=== PATIENT | male | born 1975 | race Caucasian/White ===

== ENCOUNTER 2021-12-01 22:15 | Emergency (ER) | payer OTHER, SELFPAY ==
[2021-12-01 22:24] VITALS: BP 145/94; PULSE 92; RESP 20; TEMP 36.7; O2SAT 97
--- NOTE | 2021-12-01 23:27 | ED.EYEPROB ---
HPI - Eye Problem General Chief complaint: Eye Problems Stated complaint: something in eye Time Seen by Provider: 12/01/21 23:27 Source: patient Mode of arrival: ambulatory Limitations: no limitations History of Present Illness HPI Narrative: 46-year-old male presents emergency room secondary pain irritation in the left eye. He states he started just prior to come to emergency room. He states he feels like he got something in his eye. He was doing nothing but sitting watching TV at the time this started. He denies any visual disturbance. States he had sand in his eye 1 time before and this feels like that. Related Data Allergies Allergy/AdvReac Type Severity Reaction Status Date / Time NKDA Allergy Mild Unknown Uncoded 12/01/21 22:37 Review of Systems Review of Systems: CONSTITUTIONAL: Denies fever, chills, or sweats. EYES: Pain to the left eye. No visual disturbances. No discharge. ENT: Denies rhinorrhea, congestion, sore throat, or otalgia. CARDIOVASCULAR: Denies chest pain, palpitations, or edema. RESPIRATORY: Denies cough or dyspnea. GASTROINTESTINAL: Denies abdominal pain, nausea, vomiting, or diarrhea. GENITOURINARY: Denies dysuria or hematuria. SKIN: Denies rash or itching. MUSCULOSKELETAL: Denies back pain, joint pain, or myalgia. NEUROLOGIC: Denies headache, numbness, or weakness. PSYCHIATRIC: Denies anxiety or depression. Exam Narrative: APPEARANCE: Well appearing, no pain or distress, well-nourished. Head normocephalic and atraumatic. EYES: PERRLA/EOMI, conjunctivae very clear. Unable to visualize any foreign bodies to the left eye. Proparacaine was placed in left eye for anesthetic effect. Able to sweep under upper and lower lids with a Q-tip and no foreign bodies there either. Fluorescein stain was performed and could not visualize any corneal abrasion. Patient states his pain is sensation is completely gone at this time. NOSE: Normal with no drainage EARS:TMS clear Elvis Neville, with good light reflex. THROAT: Pharynx clear, no exudate. NECK: Supple. No adenopathy, no masses. RESPIRATORY: Airway patent, respirations nonlabored. Clear to auscultation bilaterally, no rales, rhonchi, wheezing. CARDIOVASCULAR: Regular rate and rhythm without murmurs, rubs, or gallops. ABDOMINAL: Soft, nontender, nondistended, no hepatosplenomegaly Musculoskeletal: Moves all extremities. Strength/ROM intact, No edema, No calf tenderness. NEURO: Alert. Cranial nerves II through XII intact. Normal gait. Good coordination. Nonfocal examination. SKIN:: Warm, dry. Normal Color PSYCHIATRIC: Normal affect/mood, normal interaction Course Vital Signs Vital signs: Vital Signs Temperature 98.1 F 12/01/21 22:24 Pulse Rate 92 12/01/21 22:24 Respiratory Rate 20 12/01/21 22:24 Blood Pressure 145/94 H 12/01/21 22:24 Pulse Oximetry 97 12/01/21 22:24 Temperature 98.1 F 12/01/21 22:24 Pulse Rate 92 12/01/21 22:24 Respiratory Rate 20 12/01/21 22:24 Blood Pressure 145/94 H 12/01/21 22:24 Pulse Oximetry 97 12/01/21 22:24 MDM - Eye Problem MDM Narrative Medical decision making narrative: Based on the patient's presentation as well as examination patient probably had a foreign body which is already come out of his eye. He got no corneal abrasion no foreign bodies able to be visualized at this time. Discharge Plan Discharge Clinical Impression: Acute left eye pain Patient Disposition: Home, Self-Care Condition: Improved Instructions: Eye Foreign Body (ED) Additional Instructions: Return if worse. Follow-up with your primary physician. Follow-up/Referrals: Maico,Joan Escobar MD [Primary Care Provider] - Time of Disposition: 00:19
[2021-12-01] MEDS: PROPARACAINE HCL 0.5% 15 ML OPHTH SOLN 1 DROP LEFT EYE (23:59)
[2021-12-02 00:25] VITALS: BP 122/82; PULSE 93; RESP 18; O2SAT 96
== END 2021-12-02 00:26 | disposition home or self-care (01) ==
PROVIDERS: Emergency Provider Emergency Medicine; PCP Family Medicine
DX: H57.12 Ocular pain, left eye (principal)
CPT/HCPCS: 99283; A9270

== ENCOUNTER 2024-06-26 13:54 | Emergency (ER) | payer OTHER, SELFPAY ==
--- NOTE | ~2024-06-26 | CT_ITS ---
EXAMINATION: CT abdomen pelvis w con DATE: 06/26/2024 16:50 INDICATION: Left lower quadrant abdominal pain. Diarrhea. TECHNIQUE: Computed tomography (CT) of the abdomen and pelvis was performed with 100 mL Omnipaque 350 intravenous contrast. Automated exposure control and iterative reconstruction technique were employe d. The dose-length product was 1870.87 mGy-cm. COMPARISON: CT abdomen and pelvis 03/24/2009 FINDINGS: The visualized portions of the lung bases demonstrate mild atelectasis. There are a few nod ules in the lungs measuring up to 4 mm, likely benign. No pleural effusion. The heart size is normal. No pericardial effusion. There is a small sliding hiatal hernia. There is a 5.7 x 2.6 cm pericardial cyst on the right. The liver is normal. The gallbladder is absent. The spleen, pancreas, adrenal gla nds, and left kidney are normal. There are cysts in right kidney measuring up to 2.0 cm. There is fat stranding around an epiploic appendage of sigmoid colon, consistent with epiploic appendagitis. Ther e are no dilated loops of bowel. The appendix is normal. There are no pathologically enlarged lymph n odes. There is no free intraperitoneal fluid. There is a right inguinal hernia containing fat. There is moderate thoracic and lumbar spondylosis. There is mild chronic anterior wedging of multiple thora cic vertebral bodies. IMPRESSION: 1. Epiploic appendagitis of the sigmoid colon. Reviewed, dictated and finalized at location A. Y [employer]
[2024-06-26 14:44] VITALS: BP 146/105; PULSE 89; RESP 18; TEMP 36.3; O2SAT 96
--- NOTE | 2024-06-26 14:44 | ED_ITS ---
HPI - Abdominal Pain General Chief Complaint: Abdominal Pain <Courtney Torres PA-C - Last Filed: 06/26/24 19:15> Stated Complaint: abd pain <Courtney Torres PA-C - Last Filed: 06/26/24 19:15> Time Seen by Provider: 06/26/24 14:44 <Courtney Torres PA-C - Last Filed: 06/26/24 19:15> Focused HPI: Patient is a 48 y/o male who presents to the ED with c/o LLQ abd pain. Patient reports he woke up yesterday with mild pain in his LLQ. States it worsened throughout the day, worse with movements/bending. States pain woke up him several times throughout the night. Denied any change in his pain with bowel movements. He went to an urgent care today and was referred to the ED for further evaluation. Has not taken anything for the pain. Denies N/V, rectal bleeding, melena, fevers. Denies hx of diverticulitis. Had a colonoscopy about 10 years ago which showed internal hemorrhoids. No other significant findings. GENERAL: Well-appearing, morbidly obese with BMI of 41.9, and in no acute distress. HEAD: Normocephalic, atraumatic. CHEST: Clear to auscultation. ?No respiratory distress. HEART: Regular rate and rhythm.? ABD: Focal TTP in LLQ, no rebound. Normoactive BS. NEURO: ?Alert and oriented x3. Patient screened in triage and initial orders placed.? ?Additional care and disposition to be based upon?diagnostic testing and treatment. <Courtney Torres PA-C - Last Filed: 06/26/24 19:15> Source: patient <Courtney Torres PA-C - Last Filed: 06/26/24 19:15> Mode of arrival: ambulatory <Courtney Torres PA-C - Last Filed: 06/26/24 19:15> Limitations: no limitations <Courtney Torres PA-C - Last Filed: 06/26/24 19:15> History of Present Illness HPI narrative: per hpi <Elif Rivas MD - Last Filed: 06/26/24 19:35> Related Data Allergies/Adverse Reactions: Allergies Allergy/AdvReac Type Severity Reaction Status Date / Time NKDA Allergy Mild Unknown Uncoded 12/01/21 22:37 <Courtney Torres PA-C - Last Filed: 06/26/24 19:15> Review of Systems Review of Systems: All systems reviewed & are unremarkable except as noted in HPI and below <Elif Rivas MD - Last Filed: 06/26/24 19:35> Exam Narrative: EXAMINATION OF ORGAN SYSTEMS/BODY AREAS: Constitutional: Vital signs per nursing GENERAL:[No acute distress, non-toxic appearing.] HEAD: Normal with no signs of head trauma. EYES: EOMI, conjunctiva normal ENT: Hearing grossly intact LUNGS: Nonlabored breathing. HEART: [Regular rate and rhythm] ABD: [Soft], very minimally tender to palpation left lower abdomen EXT: Normal range of motion SKIN: [No rashes or lesions.] NEURO: [Alert and oriented x 3. No gross focal sensory or strength deficits.] PSYCH: Normal affect <Elif Rivas MD - Last Filed: 06/26/24 19:35> Course Vital Signs Vital signs: Vital Signs Temperature 97.4 F L 06/26/24 14:44 Pulse Rate 89 06/26/24 14:44 Respiratory Rate 18 06/26/24 14:44 Blood Pressure 146/105 H 06/26/24 14:44 Pulse Oximetry 96 06/26/24 14:44 Oxygen Delivery Room Air 06/26/24 14:44 Temperature 97.4 F L 06/26/24 14:44 Pulse Rate 76 06/26/24 17:43 Respiratory Rate 18 06/26/24 17:43 Blood Pressure 148/88 H 06/26/24 17:43 Pulse Oximetry 100 06/26/24 17:43 Oxygen Delivery Room Air 06/26/24 14:44 <Courtney Torres PA-C - Last Filed: 06/26/24 19:15> Vital Signs Temperature 97.4 F L 06/26/24 14:44 Pulse Rate 89 06/26/24 14:44 Respiratory Rate 18 06/26/24 14:44 Blood Pressure 146/105 H 06/26/24 14:44 Pulse Oximetry 96 06/26/24 14:44 Oxygen Delivery Room Air 06/26/24 14:44 Temperature 97.4 F L 06/26/24 14:44 Pulse Rate 76 06/26/24 17:43 Respiratory Rate 18 06/26/24 17:43 Blood Pressure 148/88 H 06/26/24 17:43 Pulse Oximetry 100 06/26/24 17:43 Oxygen Delivery Room Air 06/26/24 14:44 <Elif Rivas MD - Last Filed: 06/26/24 19:35> MDM - Abdominal Pain MDM Narrative Medical decision making narrative: MSE by RUDI in triage. <Courtney Torres PA-C - Last Filed: 06/26/24 19:15> MSE by RUDI in triage. // Patient sent here due to left lower quadrant pain for rule out diverticulitis. Patient started today, no fevers or chills, nausea vomiting. He is very well- appearing here with minimal tenderness, labs within acceptable limits including no leukocytosis, normal urine, he does have a CT that does show epiploic appendagitis. I have discussed the findings and explained them to the patient, will start him on NSAIDs, patient agrees to the plan, return precautions follow- up to PCP and General surgery as needed. <Elif Rivas MD - Last Filed: 06/26/24 19:35> Lab Data Result diagrams: 06/26/24 15:56 06/26/24 15:56 <Courtney Torres PA-C - Last Filed: 06/26/24 19:15> Labs: Lab Results 06/26/24 06/26/24 Range/Units 15:56 16:35 WBC 7.7 (4.5-10.0) K/mm3 RBC 5.22 (4.6-6.20) M/mm3 Hgb 15.1 (14.0-18.0) g/dL Hct 46.7 (42.0-52.0) % MCV 89.5 (80-100) fl MCH 28.9 (26-34) pg MCHC 32.3 (32-36) g/dl RDW 12.7 (11.5-14.5) % Plt Count 195 (150-375) k/mm3 MPV 9.7 (7.4-10.4) fl Immature Gran % (Auto) 0.4 (0-0.5) % Neut % (Auto) 65.2 (45.5-73.1) % Lymph % (Auto) 21.8 (18.3-44.2) % [place] % (Auto) 9.6 H (2.6-8.5) % Eos % (Auto) 2.6 (0-4.4) % Baso % (Auto) 0.4 (0.2-1.2) % Lymph # (Auto) 1.69 (0.9-3.2) K/mm3 [place] # (Auto) 0.7 H (0.1-0.6) K/mm3 Eos # (Auto) 0.2 (0-0.3) K/mm3 Baso # (Auto) 0.0 (0.0-0.1) K/mm3 Abs Immat Gran (auto) 0.03 (0.00-0.031) K/mm3 Absolute Neuts (auto) 5.1 (1.3-6.7) K/mm3 Absolute Nucleated RBC 0.000 (0.0-0.012) K/mm3 Nucleated RBC % 0.0 (0.0-0.2) % Sodium 140 (137-145) mmol/L Potassium 3.8 (3.4-5.0) mmol/L Chloride 105 (98-107) mmol/L Carbon Dioxide 26 (22-30) mmol/L Anion Gap 9 (4-12) mmol/L BUN 18 (9-20) mg/dL Creatinine 1.00 (0.7-1.3) mg/dL Estim Creat Clear Calc 127 ml/min Estimated GFR > 60 (59 - ) Glucose 118 H (65-110) mg/dL Calcium 8.8 (8.4-10.2) mg/dL Total Bilirubin 0.5 (0.2-1.3) mg/dL AST 33 (17-59) U/L ALT 37 (6-50) U/L Alkaline Phosphatase 83 (38-126) U/L Total Protein 7.0 (6.3-8.2) g/dL Albumin 4.1 (3.5-5.1) g/dL Lipase 43 (23-300) U/L Urine Color Yellow (Yellow) Urine Appearance Clear (Clear) Urine pH 6.5 (5.0-9.0) Ur Specific [place] 1.027 (1.001-1.035) Urine Protein Negative (Negative) mg/dL Urine Glucose (UA) Negative (Negative) mg/dL Urine Ketones Trace H (Negative) mg/dL Ur Blood (Man) Negative (Negative) Urine Nitrate Negative (Negative) Urine Bilirubin Negative (Negative) Urine Urobilinogen 0.2 (<2.0) mg/dL Leukocyte Esterase Rfl Negative (Negative) CHARLIE/UL <Courtney Torres PA-C - Last Filed: 06/26/24 19:15> Lab Results 06/26/24 06/26/24 Range/Units 15:56 16:35 WBC 7.7 (4.5-10.0) K/mm3 RBC 5.22 (4.6-6.20) M/mm3 Hgb 15.1 (14.0-18.0) g/dL Hct 46.7 (42.0-52.0) % MCV 89.5 (80-100) fl MCH 28.9 (26-34) pg MCHC 32.3 (32-36) g/dl RDW 12.7 (11.5-14.5) % Plt Count 195 (150-375) k/mm3 MPV 9.7 (7.4-10.4) fl Immature Gran % (Auto) 0.4 (0-0.5) % Neut % (Auto) 65.2 (45.5-73.1) % Lymph % (Auto) 21.8 (18.3-44.2) % [place] % (Auto) 9.6 H (2.6-8.5) % Eos % (Auto) 2.6 (0-4.4) % Baso % (Auto) 0.4 (0.2-1.2) % Lymph # (Auto) 1.69 (0.9-3.2) K/mm3 [place] # (Auto) 0.7 H (0.1-0.6) K/mm3 Eos # (Auto) 0.2 (0-0.3) K/mm3 Baso # (Auto) 0.0 (0.0-0.1) K/mm3 Abs Immat Gran (auto) 0.03 (0.00-0.031) K/mm3 Absolute Neuts (auto) 5.1 (1.3-6.7) K/mm3 Absolute Nucleated RBC 0.000 (0.0-0.012) K/mm3 Nucleated RBC % 0.0 (0.0-0.2) % Sodium 140 (137-145) mmol/L Potassium 3.8 (3.4-5.0) mmol/L Chloride 105 (98-107) mmol/L Carbon Dioxide 26 (22-30) mmol/L Anion Gap 9 (4-12) mmol/L BUN 18 (9-20) mg/dL Creatinine 1.00 (0.7-1.3) mg/dL Estim Creat Clear Calc 127 ml/min Estimated GFR > 60 (59 - ) Glucose 118 H (65-110) mg/dL Calcium 8.8 (8.4-10.2) mg/dL Total Bilirubin 0.5 (0.2-1.3) mg/dL AST 33 (17-59) U/L ALT 37 (6-50) U/L Alkaline Phosphatase 83 (38-126) U/L Total Protein 7.0 (6.3-8.2) g/dL Albumin 4.1 (3.5-5.1) g/dL Lipase 43 (23-300) U/L Urine Color Yellow (Yellow) Urine Appearance Clear (Clear) Urine pH 6.5 (5.0-9.0) Ur Specific [place] 1.027 (1.001-1.035) Urine Protein Negative (Negative) mg/dL Urine Glucose (UA) Negative (Negative) mg/dL Urine Ketones Trace H (Negative) mg/dL Ur Blood (Man) Negative (Negative) Urine Nitrate Negative (Negative) Urine Bilirubin Negative (Negative) Urine Urobilinogen 0.2 (<2.0) mg/dL Leukocyte Esterase Rfl Negative (Negative) CHARLIE/UL <Elif Rivas MD - Last Filed: 06/26/24 19:35> Imaging Data Radiologist's impression: ITS Impressions Abdomen/Pelvis CT 06/26/24 17:06 IMPRESSION: 1. Epiploic appendagitis of the sigmoid colon. <Courtney Torres PA-C - Last Filed: 06/26/24 19:15> ITS Impressions Abdomen/Pelvis CT 06/26/24 17:06 IMPRESSION: 1. Epiploic appendagitis of the sigmoid colon. <Elif Rivas MD - Last Filed: 06/26/24 19:35> Discharge Plan Discharge Clinical Impression: Epiploic appendagitis <Courtney Torres PA-C - Last Filed: 06/26/24 19:15> Patient Disposition: Home, Self-Care <Courtney Torres PA-C - Last Filed: 06/26/24 19:15> Condition: Stable <Courtney Torres PA-C - Last Filed: 06/26/24 19:15> Instructions: Epiploic Appendagitis (ED) <Courtney Torres PA-C - Last Filed: 06/26/24 19:15> Additional Instructions: Please follow up with your doctor; you can always return for any further issues. <Courtney Torres PA-C - Last Filed: 06/26/24 19:15> Prescriptions: New famotidine 20 mg tablet 20 mg PO DAILY Qty: 30 0RF ibuprofen 400 mg tablet 400 mg PO TID PRN (Reason: pain) Qty: 30 0RF <Courtney Torres PA-C - Last Filed: 06/26/24 19:15> Follow-up/Referrals: Leesa Colbert MD [Physician] - 2 Days Yajaira,GEORGINA Mueller [Primary Care Provider] - <KRYSTAL Stephen Last Filed: 06/26/24 19:15>
[2024-06-26 16:06] LABS: Basophils Percent Auto 0.4 % (0.2-1.2); Eosinophils Absolute Auto 0.2 K/mm3 (0-0.3); Eosinophils Percent Auto 2.6 % (0-4.4); Hematocrit 46.7 % (42.0-52.0); Hemoglobin 15.1 g/dL (14.0-18.0); Immature Granulocyte Absolute 0.03 K/mm3 (0.00-0.031); Immature Granulocyte Percent A 0.4 % (0-0.5); Lymphocytes Absolute Auto 1.69 K/mm3 (0.9-3.2); Lymphocytes Percent Auto 21.8 % (18.3-44.2); Mean Corpuscular HGB Conc 32.3 g/dl (32-36); Mean Corpuscular Hemoglobin 28.9 pg (26-34); Mean Corpuscular Volume 89.5 fl (80-100); Mean Platelet Volume 9.7 fl (7.4-10.4); Monocytes Absolute Auto 0.7 K/mm3 (0.1-0.6); Monocytes Percent Auto 9.6 % (2.6-8.5); Neutrophils Absolute Auto 5.1 K/mm3 (1.3-6.7); Neutrophils Percent Auto 65.2 % (45.5-73.1); Platelet Count Result 195 k/mm3 (150-375); Red Blood Count 5.22 M/mm3 (4.6-6.20); Red Cell Distribution Width 12.7 % (11.5-14.5); White Blood Count 7.7 K/mm3 (4.5-10.0)
[2024-06-26 16:18] LABS: Alanine Aminotransferase 37 U/L (6-50); Albumin Level 4.1 g/dL (3.5-5.1); Alkaline Phosphatase 83 U/L (38-126); Anion Gap 9 mmol/L (4-12); Aspartate Amino Transferase 33 U/L (17-59); Bilirubin,Total 0.5 mg/dL (0.2-1.3); Blood Urea Nitrogen 18 mg/dL (9-20); Calcium 8.8 mg/dL (8.4-10.2); Carbon Dioxide 26 mmol/L (22-30); Chloride 105 mmol/L (98-107); Estimated CRCL calculation 127 ml/min; Estimated Glomerular Filt Rate > 60; Glucose 118 mg/dL (65-110); Lipase 43 U/L (23-300); Potassium 3.8 mmol/L (3.4-5.0); Sodium 140 mmol/L (137-145)
[2024-06-26 16:55] VITALS: O2SAT 93
[2024-06-26 16:56] VITALS: BP 141/92; O2SAT 97
[2024-06-26 16:58] LABS: Add Urine Microscopic? NO; Appearance Urine Clear (Clear); Bilirubin Urine Negative (Negative); Blood Urine Negative (Negative); Color Urine Yellow (Yellow); Glucose Urine UA Negative (Negative); Ketones Urine Trace mg/dL (Negative); Leukocyte Esterase Ur Negative LEU/UL (Negative); Nitrate Urine Negative (Negative); Protein Urine Negative (Negative); Specific Grav Ur 1.027 (1.001-1.035); Urobilinogen Urine 0.2 mg/dL (<2.0); pH Urine 6.5 (5.0-9.0)
[2024-06-26 17:00] VITALS: O2SAT 94
[2024-06-26 17:01] VITALS: BP 131/88; PULSE 76; RESP 18; O2SAT 97
[2024-06-26 17:43] VITALS: BP 148/88; PULSE 76; RESP 18; O2SAT 100
== END 2024-06-26 17:43 | disposition home or self-care (01) ==
PROVIDERS: Physician Assistant; Emergency Provider Emergency Medicine; PCP Registered Nurse
DX: K63.89 Other specified diseases of intestine (principal)
CPT/HCPCS: 36415; 74177; 80053; 81003; 83690; 85025; 99284; Q9967